=== PATIENT | male | born 1945 | race Caucasian/White ===

== ENCOUNTER 2017-07-21 07:40 | Outpatient (CLI) | payer MEDICARE ==
--- NOTE | 2017-07-21 13:29 | NM ---
NUCLEAR MEDICINE GASTRIC EMPTYING SCAN: HISTORY: A 71-year-old male with gastroesophageal reflux disease without esophagitis. Refractory gastroesophageal reflux disease. Rule out gastroparesis. TECHNIQUE: 2.2 mCi of Technetium 99m-sulfur colloid served in scrambled egg meal. Scintigraphic anterior views of abdomen obtained. Counts obtained over the stomach, and used to plot a time-activity curve. FINDINGS: Thirty minutes: 43% empty. Sixty minutes: 70% empty. Two hours: 75% empty. Three hours: 97% empty. Four hours: 99% empty. Half-time of emptyin minutes. IMPRESSION: Normal. POS: OFF
== END 2017-07-21 07:41 | disposition home or self-care (01) ==
LOC: NM 07:40
PROVIDERS: ATTEND Internal Medicine
DX: K21.9 Gastro-esophageal reflux disease without esophagitis (principal)
CPT/HCPCS: 78264; A9541

== ENCOUNTER 2020-07-26 13:47 | Outpatient (CLI) | payer OTHER, MEDICARE | END 2020-07-26 13:48 | disposition home or self-care (01) | LOC: BICMAMMO 13:47 | PROVIDERS: ATTEND Specialist | DX: N63.20 Unspecified lump in the left breast, unspecified quadrant (principal); N62 Hypertrophy of breast | CPT/HCPCS: 77066; G0279 ==